=== PATIENT | female | born 1990 | race Two or more races ===

== ENCOUNTER → 2025-06-09 | Emergency (ER) | payer OTHER ==
[~2025-06-09] VITALS: Ht 165.1 cm; Wt 56.7 kg
[~2025-06-09] MED LIST: KETOROLAC TROMETHAMINE 30 MG VIAL IM ONE; ORPHENADRINE CITRATE 30 MG/ML AMPUL IM ONE
== END | disposition home or self-care (01) ==
LOC: ER 10:15
DX: S89.81XA Other specified injuries of right lower leg, initial encounter (principal); W19.XXXA Unspecified fall, initial encounter; Y93.79 Activity, other specified sports and athletics; Y92.89 Other specified places as the place of occurrence of the external cause; Y99.8 Other external cause status; M79.661 Pain in right lower leg